=== PATIENT | female | born 1990 | race Caucasian/White ===

== ENCOUNTER 2018-03-05 02:29 | Emergency (ER) | payer MEDICAID, OTHER ==
[2015-12-31 12:47] VITALS: BMI 30.1
[~2018-03-05 02:29] MED LIST: BUTA1CAP6 PO; ESTR-33 PO; IBUP800T37 PO; MEDR150V11 IM; OXYC-865 PO; PREN-127 PO; PREN1TAB50
[2018-03-05 02:34] VITALS: BP 123/105
[2018-03-05] MEDS ORDERED: LOR5/325 PO (02:41)
[2018-03-05] MEDS ORDERED: AMOX-362 PO (02:41)
--- NOTE | 2018-03-05 02:41 | ER Report ---
History and Physical Time Seen By MD: 02:36 Hx. of Stated Complaint: PATIENT HAS TOOTH PAIN ON HER UPPER RIGHT SIDE OF HER MOUTH; STATES THAT IT HAS BEEN GOING ON FOR A WHILE, TONIGHT IT HAS GOTTEN WOSE HPI/ROS CHIEF COMPLAINT: Dental pain HISTORY OF PRESENT ILLNESS: This is a 28-year-old female. She has chronic right lower dental pain. She has a third molar coming in crooked that's impacted and has a broken second molar. She always has pain there but is much worse tonight. They cannot afford a dentist. She's been using [id number] pain medicines without relief tonight. No drainage or purulent taste from the tooth. Allergies: Coded Allergies: No Known Drug Allergies (Unverified , 01/02/16) Home Meds Active Scripts Amoxicillin (AMOXICILLIN) 500 Mg Capsule, 1 CAP PO Q8H, #30 CAPSULE 0 Refills Prov:DARRIAN MARVIN MD 03/05/18 Hydrocodone Bit/Acetaminophen (HYDROCODON-ACETAMINOPHEN 5-325) 1 Each Tablet, 1 EACH PO Q4H PRN for PAIN, #8 TAB 0 Refills Prov:DARRIAN MARVIN MD 03/05/18 Estradiol (ESTRADIOL) 1 Mg Tablet, 1 MG PO DAILY for 14 Days, #14 TAB 0 Refills Prov:ANISHA MARTINEZ MD 12/07/16 Ibuprofen (IBUPROFEN) 800 Mg Tablet, 800 MG PO Q8H PRN for PAIN, #20 TAB 0 Refills Prov:ANISHA MARTINEZ MD 12/07/16 Reported Medications Medroxyprogesterone Acetate (DEPO-PROVERA) 150 Mg/1 Ml Vial, 150 MG IM [id number], VIAL 12/01/16 Butalb/Acetaminophen/Caffeine (FIORICET 50-300-40) 1 Each Capsule, 1-2 EACH PO PRN PRN for MIGRAINE, CAPSULE 12/01/16 Vit #76/Iron,Carb/FA (Pnv 29-1 Tablet) 1 Each Tablet, 1 TAB DAILY 12/31/15 Reviewed Nurses Notes: Yes Hx Smoking: No Smoking Status: Never Smoker Exposure to Second Hand Smoke?: Yes ("SOMETIMES") Hx Substance Use Disorder: No Hx Alcohol Use: No Constitutional Vital Sign - Last 24 Hours 03/05/18 02:34 Temp 97.9 Pulse 94 Resp 18 B/P (MAP) 123/105 Pulse Ox 91 O2 Delivery Room Air Physical Exam Gen.: Alert, no distress. ENT: Patient does have an impacted crooked third molar coming in the right lower. Small quarter of the tooth of the second molar broken off. No redness of the gums. No purulent drainage or abscess formation noted Neck: No lymphadenopathy noted Medical Decision Making ED Course/Re-evaluation ED Course Recommend the patient follow up with a dentist. Did provide some Lortab tonight for pain as well as a small prescription, she will also continue using ibuprofen. Also gave amoxicillin. Decision to Disposition Date: Mar 05, 2018 Decision to Disposition Time: 02:40 Depart Departure Latest Vital Signs Vital Signs Date Time Temp Pulse Resp B/P (MAP) Pulse Ox O2 Delivery O2 Flow Rate FiO2 03/05/18 02:34 97.9 94 18 123/105 91 Room Air Impression: Primary Impression: Pain, dental Condition: Improved Disposition: HOME OR SELF-CARE New Scripts Amoxicillin (AMOXICILLIN) 500 Mg Capsule 1 CAP PO Q8H, #30 CAPSULE 0 Refills Prov: DARRIAN MARVIN MD 03/05/18 Hydrocodone Bit/Acetaminophen (HYDROCODON-ACETAMINOPHEN 5-325) 1 Each Tablet 1 EACH PO Q4H PRN for PAIN, #8 TAB 0 Refills Prov: DARRIAN MARVIN MD 03/05/18 Patient Instructions: Toothache (ED) Additional Instructions: Ibuprofen 200mg over the counter tablets, take 4 tablets three times a day with food. Lortab 5/325, one every 4 hours as needed for pain. Amoxicillin 500 mg 3 times a day. Follow up with a dentist for definitive care. DARRIAN MARVIN MD Mar 05, 2018 02:41
[2018-03-05] MEDS ORDERED: ACET/HYDROC 5/325MG TH ER ONLY 2 TAB/BOTTLE PO ONE (02:45)
[2018-03-05] MEDS ORDERED: AMOXICILLIN 500 MG CAP PO ONE (02:45)
== END 2018-03-05 02:49 | disposition home or self-care (01) ==
LOC: ER 02:40
DX: K08.89 Other specified disorders of teeth and supporting structures (principal)
CPT/HCPCS: 99283

== ENCOUNTER → 2018-08-20 | Outpatient (CLI) | payer OTHER ==
[2015-12-31 12:47] VITALS: BMI 30.1
[~2018-08-20] MED LIST changes: +AMOX-362 PO; +LOR5/325 PO
--- NOTE | 2018-08-20 18:26 | RADIOLOGY IMAGING REPORT ---
FACILITY: [facility] [place]IENT NAME: Nette Alvarenga : 1990 MR: [id number] V: [id number] EXAM DATE: ORDERING PHYSICIAN: DHRUV GANNON TECHNOLOGIST: Location: [facility] Patient: Lyle May : 1990 Visit/Account:[id number] Date of Sevice: 08/20/2018 CHEST PA LAT COMPARISONS: None. ADDITIONAL PERTINENT HISTORY: Cough for 5 days with fever. FINDINGS: Cardiomediastinal silhouette: Negative. Pulmonary vasculature: Negative. Lung gonzales: Patchy infiltrate involving the right upper lobe. Pleural spaces: Negative. Osseous structures: Negative. Surrounding soft tissues: Negative. IMPRESSION: Patchy infiltrate involving the right upper lobe. Report Dictated By: William Medina MD at 08/20/2018 6:18 PM Report E-Signed By: William Medina MD at 08/20/2018 6:19 PM WSN:[id number]
== END ==
LOC: RAD 17:12
PROVIDERS: ATTEND Physician Assistant
DX: R05 Cough (principal)
CPT/HCPCS: 71046